=== PATIENT | female | born 1985 | race Hispanic/Latino ===

== ENCOUNTER 2021-09-07 13:01 | Emergency (ER) | payer OTHER, SELFPAY ==
[2021-09-07 13:15] VITALS: BP 154/97; PULSE 88; RESP 18; TEMP 36.9; O2SAT 100
--- NOTE | 2021-09-07 13:52 | WPDEDEXPGENP ---
HPI - General Ped General Chief complaint: Urogenital-Female Stated complaint: blood in urine,painful urination History of Present Illness HPI narrative: Patient is a 35-year-old female who presents to the [facility] via POV accompanied by her spouse for evaluation of urinary problem that began 3 days ago. Additionally, she reports low back pain, dysuria, urinary frequency, urinary urgency, and hematuria. He has not improved symptoms in urinating worsens symptoms. History of UTIs. Today symptoms are similar to previous UTIs. Related Data Allergies Allergy/AdvReac Type Severity Reaction Status Date / Time Penicillins Allergy Unknown Verified 09/07/21 13:21 Pediatric Review of Systems Review of Systems: Denies history of pyelonephritis and renal calculi. Pertinent negatives: fever, chills, sweats, change in appetite, poor p.o. intake, malaise, recent weight loss, myalgias, lymphadenopathy, headache, dizziness, STD exposure, painful intercourse, abdominal pain, constipation, nausea, vomiting, diarrhea, abdominal cramping, urinary incontinence, vaginal bleeding/discharge, penile drainage, shortness of breath, chest pain, and heart palpitations/murmurs. PMFSH Family History Family History Mother Hypertension Patient's mother is in good health Family history of malignant neoplasm of uterus Father Cerebrovascular accident Family history of diabetes mellitus in first degree relative Patient's father is Family history of type 2 diabetes mellitus Social History Social History Smoking status: Never smoker Second hand tobacco smoke exposure: No Alcohol intake: never Comments I have reviewed and agree with the patient's past medical, surgical, social, and family hx as documented by the RN. There is no relevant family history pertinent to the presenting complaint. Pediatric Exam Narrative: Physical exam: GENERAL: Well-appearing, well-nourished, and in no acute distress. HEAD: Normocephalic, atraumatic. NECK: Supple. No lymphadenopathy or nuchal rigidity. CHEST: Lung sounds are clear to auscultation in bilateral lung hernandez. No respiratory distress. HEART: Regular rate and rhythm. No murmur, gallop, or rub heard. ABDOMEN: Soft, non-distended, normal active bowel sounds in all quadrants. Moderate suprapubic tenderness appreciated upon patient. No guarding. No rebound tenderness. No pulsatile or palpable abdominal mass(es). No CVAT : Bladder non-distended, non-tender EXTREMITIES: Normal range of motion. No edema. SKIN: Warm, dry, no rash. No skin color changes. Excellent turgor. NEURO: No focal deficits. Alert and oriented x3. SPECIAL OBSERVATIONS: Smiling. Laughing. No evidence of discomfort. C/O of of proportion to exam. Eating XXX. Running around. Tolerates food/fluids. Course Course Level of Care: Express Care Visit Vital Signs Vital signs: Vital Signs Temperature 98.5 F 09/07/21 13:15 Pulse Rate 88 09/07/21 13:15 Respiratory Rate 18 09/07/21 13:15 Blood Pressure 154/97 H 09/07/21 13:15 Pulse Oximetry 100 09/07/21 13:15 Oxygen Delivery Room Air 09/07/21 13:15 Temperature 98.5 F 09/07/21 13:15 Pulse Rate 88 09/07/21 13:15 Respiratory Rate 18 09/07/21 13:15 Blood Pressure 154/97 H 09/07/21 13:15 Pulse Oximetry 100 09/07/21 13:15 Oxygen Delivery Room Air 09/07/21 13:15 Medical Decision Making Differential Diagnosis Differential Diagnosis: Nephrolithiasis, urinary tract infection, pyelonephritis, frequency of micturition, dysuria Vital Signs Vital Signs: Vital Signs Temperature 98.5 F 09/07/21 13:15 Pulse Rate 88 09/07/21 13:15 Respiratory Rate 18 09/07/21 13:15 Blood Pressure 154/97 H 09/07/21 13:15 Pulse Oximetry 100 09/07/21 13:15 Oxygen Delivery Room Air 09/07/21 13:15 Temperature 98.5 F 0
== END 2021-09-07 14:05 | disposition home or self-care (01) ==
PROVIDERS: Emergency Provider Nurse Practitioner Family
DX: N30.90 Cystitis, unspecified without hematuria (principal)
CPT/HCPCS: 81003; 87077; 87086; 87088; 99203; G0463

== ENCOUNTER 2022-07-14 17:09 | Outpatient (CLI) | payer OTHER, SELFPAY ==
--- NOTE | ~2022-07-14 | CT_ITS ---
EXAMINATION: CT brain wo con DATE: 07/14/2022 17:33 INDICATION: R51.9 - Headache, unspecified . TECHNIQUE: Computed tomography (CT) of the head was performed without intravenous contrast. The mA wa s adjusted according to patient size. Iterative reconstruction technique was employed. The dose-lengt h product was 605.33 mGy-cm. COMPARISON: 08/26/2015. FINDINGS: No acute intracranial hemorrhage or extra-axial fluid collection. No hydrocephalus, mass, or herniation. No acute ischemic infarct. Unremarkable dural venous sinus attenuation. No acute osseous abnormality. The aerated spaces are clear. IMPRESSION: No acute intracranial process. Reviewed, dictated and finalized at location K.
== END 2022-07-14 17:10 | disposition home or self-care (01) ==
PROVIDERS: PCP Family Medicine; Visit Provider Nurse Practitioner
DX: R51.9 Headache, unspecified (principal); R41.3 Other amnesia
CPT/HCPCS: 70450

== ENCOUNTER 2022-07-15 07:35 | Outpatient (CLI) | payer OTHER, SELFPAY ==
[2022-07-15 08:43] LABS: Alanine Aminotransferase 18 U/L (6-35); Albumin Level 4.9 g/dL (3.5-5.1); Alkaline Phosphatase 116 U/L (38-126); Anion Gap 10 mmol/L (8-16); Aspartate Amino Transferase 24 U/L (14-36); Bilirubin,Total 0.5 mg/dL (0.2-1.3); Blood Urea Nitrogen 14 mg/dL (7-17); Calcium 9.1 mg/dL (8.4-10.2); Carbon Dioxide 25 mmol/L (22-30); Chloride 105 mmol/L (98-107); Cholesterol 171 mg/dL (0-200); Estimated Glomerular Filt Rate > 60; Glucose 122 mg/dL (65-110); HDL Direct 39 mg/dL; Potassium 3.5 mmol/L (3.4-5.0); Sodium 140 mmol/L (137-145); Triglycerides 141 mg/dL (<150)
[2022-07-15 08:54] LABS: LDL Cholesterol Direct 110 mg/dL
[2022-07-15 09:01] LABS: Basophils Absolute Auto 0.1 K/mm3 (0.0-0.1); Basophils Percent Auto 0.8 % (0.2-1.2); Eosinophils Absolute Auto 0.3 K/mm3 (0-0.3); Eosinophils Percent Auto 2.8 % (0-4.4); Hematocrit 26.4 % (37.0-47.0); Immature Granulocyte Absolute 0.19 K/mm3 (0.00-0.031); Immature Granulocyte Percent A 1.7 % (0-0.5); Lymphocytes Absolute Auto 4.34 K/mm3 (0.9-3.2); Lymphocytes Percent Auto 38.5 % (18.3-44.2); Mean Corpuscular HGB Conc 25.4 g/dl (32-36); Mean Corpuscular Hemoglobin 16.3 pg (26-34); Mean Corpuscular Volume 64.4 fl (80-100); Mean Platelet Volume 11.1 fl (7.4-10.4); Monocytes Absolute Auto 0.6 K/mm3 (0.1-0.6); Monocytes Percent Auto 5.4 % (2.6-8.5); Neutrophils Absolute Auto 5.7 K/mm3 (1.3-6.7); Neutrophils Percent Auto 50.8 % (45.5-73.1); Nucleated Red Blood Cells Absolute Auto 0.1 K/mm3 (0.0-0.012); Nucleated Red Blood Cells Perc 0.5 % (0.0-0.2); Platelet Count Result 415 k/mm3 (150-375); Red Cell Distribution Width 20.5 % (11.5-14.5); White Blood Count 11.3 K/mm3 (4.5-10.0)
[2022-07-15 09:46] LABS: Hemoglobin 6.7 g/dL (12.0-15.0); Platelet Estimate Increased (Adequate)
[2022-07-15 09:47] LABS: Anisocytosis 2+ (NORMAL); Hypochromasia 2+ (NORMAL)
[2022-07-15 09:48] LABS: Microcytosis 2+ (NORMAL); Schistocytes None Seen (NORMAL)
== END 2022-07-15 07:36 | disposition home or self-care (01) ==
PROVIDERS: PCP Family Medicine; Visit Provider Nurse Practitioner
DX: D64.9 Anemia, unspecified (principal); Z76.89 Persons encountering health services in other specified circumstances
CPT/HCPCS: 36415; 80053; 80061; 84443; 85025

== ENCOUNTER 2022-07-15 13:05 | Emergency (ER) | payer OTHER, SELFPAY ==
[2022-07-15] VITALS (17 sets, daily range): BP systolic 149–191; BP diastolic 93–120; PULSE 80–110; RESP 12–21; TEMP 36.7–36.8; O2SAT 97–100
[2022-07-15 13:53] LABS: Basophils Absolute Auto 0.1 K/mm3 (0.0-0.1); Basophils Percent Auto 0.8 % (0.2-1.2); Eosinophils Absolute Auto 0.2 K/mm3 (0-0.3); Eosinophils Percent Auto 1.7 % (0-4.4); Hematocrit 26.5 % (37.0-47.0); Immature Granulocyte Absolute 0.21 K/mm3 (0.00-0.031); Immature Granulocyte Percent A 1.8 % (0-0.5); Lymphocytes Absolute Auto 3.93 K/mm3 (0.9-3.2); Lymphocytes Percent Auto 33.8 % (18.3-44.2); Mean Corpuscular Hemoglobin 16.6 pg (26-34); Mean Corpuscular Volume 63.9 fl (80-100); Mean Platelet Volume 10.5 fl (7.4-10.4); Monocytes Absolute Auto 0.6 K/mm3 (0.1-0.6); Monocytes Percent Auto 5.2 % (2.6-8.5); Neutrophils Absolute Auto 6.6 K/mm3 (1.3-6.7); Neutrophils Percent Auto 56.7 % (45.5-73.1); Nucleated Red Blood Cells Absolute Auto 0.1 K/mm3 (0.0-0.012); Nucleated Red Blood Cells Perc 0.4 % (0.0-0.2); Platelet Count Result 429 k/mm3 (150-375); Red Blood Count 4.15 M/mm3 (4.2-5.4); Red Cell Distribution Width 20.3 % (11.5-14.5); White Blood Count 11.6 K/mm3 (4.5-10.0)
[2022-07-15 13:55] LABS: Hemoglobin 6.9 g/dL (12.0-15.0)
[2022-07-15 14:03] LABS: Anion Gap 11 mmol/L (8-16); Blood Urea Nitrogen 12 mg/dL (7-17); Calcium 9.1 mg/dL (8.4-10.2); Carbon Dioxide 25 mmol/L (22-30); Chloride 103 mmol/L (98-107); Estimated CRCL calculation 114 ml/min; Estimated Glomerular Filt Rate > 60; Glucose 108 mg/dL (65-110); Potassium 3.9 mmol/L (3.4-5.0); Sodium 139 mmol/L (137-145)
--- NOTE | 2022-07-15 14:16 | ED.RECABL ---
HPI - Recheck/Abnormal Lab/Rx General Chief Complaint: Recheck/Abnormal Lab/Rx Stated Complaint: abnormal labs Time Seen by Provider: 07/15/22 13:14 History of Present Illness HPI narrative: Patient with history of anemia requiring blood transfusions in the past presents here with shortness of breath, generalized weakness, found to be anemic and sent here for blood transfusion. She does state that she has very heavy periods, has seen a doctor for this in the past. Related Data Home Medications Medication Instructions Recorded Confirmed esomeprazole magnesium 20 mg 20 mg PO DAILY 07/14/22 07/14/22 capsule,delayed release (Nexium 24HR) Allergies Allergy/AdvReac Type Severity Reaction Status Date / Time Penicillins Allergy Unknown Verified 07/15/22 13:11 Review of Systems Review of Systems: CONST: Tired HEENT: No sore throat C/V: No chest pain RESP: Some shortness of breath GI: No abdominal pain : No dysuria. M/S: No joint pain. SKIN: No rash. 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 EYES: EOMI, conjunctiva normal ENT: Hearing grossly intact LUNGS: Nonlabored breathing. HEART: [Regular rate and rhythm] ABD: [Soft], [nontender to palpation] EXT: Normal range of motion SKIN: [No rashes or lesions.] NEURO: [Alert and oriented x 3. No gross focal sensory or strength deficits.] PSYCH: Normal affect Course Vital Signs Vital signs: Vital Signs Temperature 98.0 F 07/15/22 13:07 Pulse Rate 109 H 07/15/22 13:07 Respiratory Rate 16 07/15/22 13:07 Blood Pressure 191/109 H 07/15/22 13:07 Pulse Oximetry 100 07/15/22 13:07 Oxygen Delivery Room Air 07/15/22 13:07 Temperature 98.3 F 07/15/22 16:24 Pulse Rate 87 07/15/22 17:00 Respiratory Rate 14 07/15/22 17:00 Blood Pressure 149/97 H 07/15/22 16:31 Pulse Oximetry 99 07/15/22 17:00 Oxygen Delivery Room Air 07/15/22 13:07 MDM - Recheck/Abnormal Lab/Rx MDM Narrative Medical decision making narrative: 36-year-old female sent here by PCP for blood transfusion, vitals initially tachycardic, she does appear quite tired and pale, with soft nontender abdomen, normal neurologic exam. She is transfused a unit here, she already has close follow-up with her doctor who has set her up for appointments outpatient for neurology for headaches, hematology for her blood, ENGINEERING DOCUMENTATION SPECIALIST for her for heavy periods which we suspect is likely causing her symptoms. She declined any further medications for me at this time. Return precautions provided and stable for discharge at this time Lab Data 07/15/22 13:44 07/15/22 13:44 Labs: Lab Results 07/15/22 07/15/22 Range/Units 13:44 13:46 WBC 11.6 H (4.5-10.0) K/mm3 RBC 4.15 L (4.2-5.4) M/mm3 Hgb 6.9 L* (12.0-15.0) g/dL Hct 26.5 L (37.0-47.0) % MCV 63.9 L (80-100) fl MCH 16.6 L (26-34) pg MCHC 26.0 L (32-36)
[2022-07-15 14:30] LABS: Schistocytes None Seen (NORMAL)
[2022-07-15 14:35] LABS: Eosinophils Absolute Manual 0.34 K/mm3 (0.02-0.5); Eosinophils Percent Manual 3 % (0-4); Lymphocytes Absolute Manual 4.06 K/mm3 (1.1-4.5); Monocytes Absolute Manual 0.11 K/mm3 (0.1-0.90); Monocytes Percent Manual 1 % (3-9); Neutrophils Percent Manual 61 % (46-73); Total Cells Counted 100
[2022-07-15 14:36] LABS: Hypochromasia 1+ (NORMAL); Platelet Estimate Adequate (Adequate)
[2022-07-15 14:37] LABS: Anisocytosis 3+ (NORMAL)
[2022-07-15] MEDS: TUBING, BLOOD PLUM PUMP TUBING 1 EACH XX (15:12)
[2022-07-15] MEDS: SODIUM CHLORIDE 0.9% IV 250 ML 30 ML IV CONT (15:12)
--- NOTE | 2022-07-27 06:39 | PC.NURSE ---
LATE ENTRY This note is being entered to document information to the patient's record. The following information was omitted on [07/15/22], by [Tila Garcia RN].Normal saline stopped @ 1449 on 07/15/22
--- NOTE | 2022-08-07 07:26 | PC.NURSE ---
LATE ENTRY This note is being entered to document information to the patient's record. The following information was omitted on [07/15/22], by [HANNAH Adorno]. Fluids were infused on 07/15/22.
== END 2022-07-15 17:33 | disposition home or self-care (01) ==
PROVIDERS: Emergency Provider Emergency Medicine; PCP Family Medicine
DX: D64.9 Anemia, unspecified (principal)
CPT/HCPCS: 36415; 36430; 80048; 80053; 80061; 84443; 85025; 86850; 86900; 86901; 86920; 96360; 99285; J7050; P9016

== ENCOUNTER 2022-08-28 12:04 | Outpatient (CLI) | payer OTHER, SELFPAY ==
[2022-08-28 12:24] LABS: Basophils Absolute Auto 0.1 K/mm3 (0.0-0.1); Basophils Percent Auto 0.7 % (0.2-1.2); Eosinophils Absolute Auto 0.3 K/mm3 (0-0.3); Eosinophils Percent Auto 2.8 % (0-4.4); Hematocrit 28.5 % (37.0-47.0); Immature Granulocyte Absolute 0.06 K/mm3 (0.00-0.031); Immature Granulocyte Percent A 0.7 % (0-0.5); Lymphocytes Absolute Auto 3.57 K/mm3 (0.9-3.2); Lymphocytes Percent Auto 38.7 % (18.3-44.2); Mean Corpuscular HGB Conc 28.1 g/dl (32-36); Mean Corpuscular Hemoglobin 19.7 pg (26-34); Mean Platelet Volume 10.3 fl (7.4-10.4); Monocytes Absolute Auto 0.5 K/mm3 (0.1-0.6); Monocytes Percent Auto 5.9 % (2.6-8.5); Neutrophils Absolute Auto 4.7 K/mm3 (1.3-6.7); Neutrophils Percent Auto 51.2 % (45.5-73.1); Platelet Count Result 404 k/mm3 (150-375); Red Blood Count 4.07 M/mm3 (4.2-5.4); Red Cell Distribution Width 22.3 % (11.5-14.5); White Blood Count 9.2 K/mm3 (4.5-10.0)
[2022-08-28 12:31] LABS: Platelet Estimate Increased (Adequate); Schistocytes None Seen (NORMAL)
[2022-08-28 12:32] LABS: Anisocytosis 1+ (NORMAL); Hypochromasia 2+ (NORMAL)
[2022-08-28 14:20] LABS: Iron 32 ug/dL (37-170)
[2022-08-28 14:22] LABS: Alanine Aminotransferase 18 U/L (6-35); Albumin Level 4.7 g/dL (3.5-5.1); Alkaline Phosphatase 94 U/L (38-126); Anion Gap 9 mmol/L (8-16); Aspartate Amino Transferase 23 U/L (14-36); Bilirubin,Total 0.4 mg/dL (0.2-1.3); Blood Urea Nitrogen 13 mg/dL (7-17); Calcium 8.6 mg/dL (8.4-10.2); Carbon Dioxide 26 mmol/L (22-30); Chloride 106 mmol/L (98-107); Estimated Glomerular Filt Rate > 60; Glucose 102 mg/dL (65-110); Lactate Dehydrogenase 154 U/L (120-246); Sodium 141 mmol/L (137-145)
[2022-08-28 14:32] LABS: Percent Iron Saturation 7 % (20-50)
[2022-08-28 14:55] LABS: Ferritin 3.45 ng/mL (6.24-137)
[2022-08-28 15:27] LABS: Folic Acid 8.6 ng/mL (2.76->20)
== END 2022-08-28 12:05 | disposition home or self-care (01) ==
PROVIDERS: PCP Family Medicine; Visit Provider Internal Medicine Hematology & Oncology
DX: D64.9 Anemia, unspecified (principal)
CPT/HCPCS: 36415; 80053; 82607; 82728; 82746; 83540; 83550; 83615; 85025

== ENCOUNTER 2023-06-25 19:34 | Emergency (ER) | payer OTHER, SELFPAY ==
[2023-06-25] VITALS (7 sets, daily range): BP systolic 154–187; BP diastolic 93–100; PULSE 84–121; RESP 12–16; TEMP 36.2–36.6; O2SAT 100
--- NOTE | ~2023-06-25 | XR_ITS ---
XR chest 1V portable DATE: 06/25/2023 20:22 INDICATION: Syncope TECHNIQUE: Portable upright AP chest on June 25, 2023 at 2018 hours COMPARISON: None available from the archive at this time FINDINGS: Normal heart size. No hilar or mediastinal enlargement is evident. No pulmonary infiltrate or consolidation, pleural effusion or pulmonary vascular congestion or pneumo thorax is detected. IMPRESSION: No active cardiopulmonary disease Reviewed, dictated and finalized at location A.
--- NOTE | 2023-06-25 19:39 | ECG_ITS ---
SEE SCANNED COPY FOR CONFIRMED REPORT MTDD
[2023-06-25 19:55] LABS: Basophils Absolute Auto 0.1 K/mm3 (0.0-0.1); Basophils Percent Auto 0.7 % (0.2-1.2); Eosinophils Absolute Auto 0.2 K/mm3 (0-0.3); Eosinophils Percent Auto 1.3 % (0-4.4); Hematocrit 26.3 % (37.0-47.0); Immature Granulocyte Percent A 0.8 % (0-0.5); Lymphocytes Absolute Auto 3.88 K/mm3 (0.9-3.2); Lymphocytes Percent Auto 31.7 % (18.3-44.2); Mean Corpuscular HGB Conc 25.9 g/dl (32-36); Mean Corpuscular Hemoglobin 16.8 pg (26-34); Mean Corpuscular Volume 64.9 fl (80-100); Mean Platelet Volume 9.1 fl (7.4-10.4); Monocytes Absolute Auto 0.5 K/mm3 (0.1-0.6); Monocytes Percent Auto 4.2 % (2.6-8.5); Neutrophils Absolute Auto 7.5 K/mm3 (1.3-6.7); Neutrophils Percent Auto 61.3 % (45.5-73.1); Nucleated Red Blood Cells Perc 0.2 % (0.0-0.2); Platelet Count Result 556 k/mm3 (150-375); Red Blood Count 4.05 M/mm3 (4.2-5.4); White Blood Count 12.3 K/mm3 (4.5-10.0)
[2023-06-25 20:05] LABS: Alanine Aminotransferase 12 U/L (6-35); Albumin Level 5.1 g/dL (3.5-5.1); Alkaline Phosphatase 94 U/L (38-126); Anion Gap 10 mmol/L (4-12); Aspartate Amino Transferase 29 U/L (14-36); Bilirubin,Total 0.7 mg/dL (0.2-1.3); Blood Urea Nitrogen 11 mg/dL (7-17); Calcium 9.5 mg/dL (8.4-10.2); Carbon Dioxide 22 mmol/L (22-30); Chloride 106 mmol/L (98-107); Estimated Glomerular Filt Rate > 60; Glucose 111 mg/dL (65-110); Potassium 3.9 mmol/L (3.4-5.0); Sodium 138 mmol/L (137-145)
[2023-06-25 20:26] LABS: Hemoglobin 6.8 g/dL (12.0-15.0)
[2023-06-25 20:28] LABS: Platelet Estimate Increased (Adequate)
[2023-06-25 20:29] LABS: Anisocytosis 2+; Hypochromasia 1+; Schistocytes None Seen; Stomatocytes 1+
[2023-06-25] MEDS: SODIUM CHLORIDE 0.9% IV 1,000 ML 999 ML IV CONT (20:37)
[2023-06-25] MEDS: ACETAMINOPHEN 500 MG TABLET 1000 MG PO (20:38)
--- NOTE | 2023-06-25 20:55 | ED.GENADULT ---
HPI - General Adult General Chief complaint: Syncope Stated complaint: syncope Time Seen by Provider: 06/25/23 19:48 History of Present Illness HPI narrative: [employer] service used for all communication. 37-year-old female with history of deficiency anemia presenting for syncope 4 days ago. patient has not been feeling well for last week. She has been feeling dizzy when she stands dyspnea exertion. Patient has a well documented history of iron deficiency anemia. She was seen a restaurant area manager stopped following up because she thought the iron transfusions made her feel bad. Patient denies chest pain difficulty breathing. Related Data Home Medications Medication Instructions Recorded Confirmed esomeprazole magnesium 20 mg 20 mg PO DAILY 07/14/22 12/14/22 capsule,delayed release (Nexium 24HR) cetirizine 10 mg tablet (Zyrtec) 10 mg PO DAILY 12/14/22 12/14/22 Allergies Allergy/AdvReac Type Severity Reaction Status Date / Time iron [From Venofer] Allergy Severe Dizziness Verified 06/25/23 19:40 Penicillins Allergy Unknown Verified 12/14/22 15:10 [facility] Family History Family History Mother Hypertension Patient's mother is in good health Family history of malignant neoplasm of uterus Father Cerebrovascular accident Family history of diabetes mellitus in first degree relative Patient's father is Family history of type 2 diabetes mellitus Social History Social History Smoking status: Never smoker Second hand tobacco smoke exposure: No Alcohol intake: never Substance use: never Substance use type: does not use Living arrangements: with family Occupation/Education: occupation Additional occupation/education comments: Homemaker Gender identity (if verbalized by the patient): Female Agree to blood products: Yes Exam Narrative: APPEARANCE: No apparent distress. Head: atraumatic. EYES: EOMI, NOSE: Atraumatic NECK: Trachea midline RESPIRATORY: No increased rate of breathing CTAB CARDIOVASCULAR: tachycardic no peripheral edema ABDOMINAL: Non-distended soft nontender MUSCULOSKELETAl: No obvious deformities NEURO: Alert. Cranial nerves 2-12 grossly intact. Sensation light touch, motor function cerebellar function intact for 4 extremities. Gait exam was normal. SKIN:: Warm, dry. Normal color PSYCHIATRIC: Normal affect Course Vital Signs Vital signs: Vital Signs Temperature 97.2 F L 06/25/23 19:35 Pulse Rate 121 H 06/25/23 19:35 Respiratory Rate 16 06/25/23 19:35 Blood Pressure 187/99 H 06/25/23 19:35 Pulse Oximetry 100 06/25/23 19:35 Oxygen Delivery Room Air 06/25/23 19:35 Temperature 97.1 F L 06/25/23 23:30 Pulse Rate 86 06/25/23 23:30 Respiratory Rate 15 06/25/23 23:30 Blood Pressure 156/94 H 06/25/23 23:30 Pulse Oximetry 100 06/25/23 23:30 Oxygen Delivery Room Air 06/25/23 19:35 Medical Decision Making MDM Narrative Medical decision making narrative: -Course: 37-year-old female with history of iron-deficiency anemia presenting symptomatic anemia. patient transfused 2 units PRBCs with improvement in vital signs and symptoms. Patient discharged and instructed follow-up with restaurant area manager. -DDX includes but is not limited to: symptomatic anemia, dehydration, viral illness -Co-morbidities complicating care: iron deficiency anemia, noncompliance with iron supplementation -Social determinants of health: applier, lives with her -Independent interpretation of studies: hemoglobin 6.8 MCV 64.9 Metabolic panel wnl. ekg reviewed. chest x-ray unremarkable -Interventions: 1 L normal saline, 2 units packed red blood cells -Shared decision making / Disposition: discharge Vital Signs Vital Signs: Vital Signs Temperature 97.2 F L 06/25/23 19:35 Pulse Rate 121 H 06/25/23 19:35 Respiratory Ra
[2023-06-25 20:56] LABS: Influenza A QL RT-PCR Negative (Negative); Influenza B QL RT-PCR Negative (Negative); RSV RNA, RT-PCR Negative (Negative); SARS-CoV-2 RNA PCR Negative (Negative)
[2023-06-25] MEDS: SODIUM CHLORIDE 0.9% IV 250 ML 30 ML IV CONT (22:12)
[2023-06-25] MEDS: TUBING, BLOOD SET 1 EACH XX ×2 (22:18→23:18)
[2023-06-25] MEDS: SODIUM CHLORIDE 0.9% IV 250 ML 500 ML (23:18)
[2023-06-26 00:27] VITALS: BP 158/100; PULSE 76; RESP 15; TEMP 36.3; O2SAT 100
== END 2023-06-26 00:28 | disposition home or self-care (01) ==
PROVIDERS: Emergency Provider Emergency Medicine; PCP Family Medicine
DX: D64.9 Anemia, unspecified (principal); Z20.822 Contact with and (suspected) exposure to COVID-19
CPT/HCPCS: 36415; 36430; 71045; 80053; 85025; 86850; 86900; 86901; 86923; 87637; 93005; 96360; 96361; 99285; A9270; J7030; J7050; P9016

== ENCOUNTER 2024-11-15 14:14 | Outpatient (CLI) | payer OTHER, SELFPAY ==
--- OUTSIDE RECORDS SUMMARY | 2024-10-31 10:40 | XMS_ITS ---
Author Organization [facility] Address [address] [place] [address] Care Team Providers Care Pharmacy Account Director Name Role Phone Lew Hoang Primary Care Provider Christopher Donald [phone] REASON FOR VISIT Labs-fasting Social History Sex Assigned At : Social History Observation Description Sex Assigned At Female Encounters Encounter Location Date Provider Diagnosis [address] [address] 10/31/2024 Christopher Donald Plan Of Treatment No Information Progress Notes * Mami RILEYDOB: [birth year] (39 yo F)Acc No.[id number]:10/31/2024 UNLOCKED PROGRESS NOTE Patient: Mami ARCINIEGA Provider: Pearl Donald :1985 A ge:39 Y S ex:Female Date:10/31/2024 Address:[address] [place], [place] [id number] Pcp:Lew Hoang Subjective: * Chief Complaints: * 1 . Labs-fasting. * Medical History: Objective: * Vitals: Assessment: Plan: * Treatment: * * Electronic signature of Savanna Donald , [id number] on 11/15/2024 at 03:48 PM CDT Sign off status: Pending * Provider: Pearl Donald Date: 10/31/2024 Generated for Lian green/Song/eTransmitting on: 0 11/15/2024 03:48 PM CDT
[2024-11-15 14:40] LABS: Hematocrit 31.5 % (37.0-47.0); Hemoglobin 8.5 g/dL (12.0-15.0); Immature Granulocyte Percent A 0.8 % (0-0.5); Lymphocytes Absolute Auto 3.47 K/mm3 (0.9-3.2); Mean Corpuscular HGB Conc 27.0 g/dl (32-36); Mean Corpuscular Hemoglobin 18.4 pg (26-34); Mean Corpuscular Volume 68.0 fl (80-100); Nucleated Red Blood Cells Absolute Auto 0.000 K/mm3 (0.0-0.012); Nucleated Red Blood Cells Perc 0.0 % (0.0-0.2); Platelet Count Result 402 k/mm3 (150-375); Red Blood Count 4.63 M/mm3 (4.2-5.4); White Blood Count 9.8 K/mm3 (4.5-10.0)
[2024-11-15 15:34] LABS: HIV 1/2 Ab P24 Ag Result Negative (Negative)
--- OUTSIDE RECORDS SUMMARY | 2024-11-15 15:48 | XMS_ITS | Clinical Summary ---
Author Organization [facility] Address [address] [place] [address] Care Team Providers Care Health Sciences Program Coordinator Name Role Phone Laurent Joya MD Primary Care Provider [phone] Allergies No known active allergies Medications lisinopriL (PRINIVIL) 10 mg tablet Take 10 mg by mouth daily. Active cetirizine (ZyrTEC) 10 mg tablet Take by mouth daily. Active esomeprazole (NexIUM) 20 mg Capsule, Delayed Release(E.C.) Take 20 mg by mouth daily before breakfast. Active Active Problems No known active problems Family History Relation Name Status Comments Brother 1 Alive Brother 2 Alive Brother 3 Alive Brother 4 Alive Brother 5 Alive Daughter Alive Father Mother Alive Sister 1 Alive Sister 2 Sister 3 Alive Sister 4 Alive Sister 5 Alive Sister 6 Alive Sister 7 Alive Son 1 Alive Son 2 Alive Son 3 Alive Social History Tobacco Use Types Packs/Day Years Used Date Smoking Tobacco: Never Smokeless Tobacco: Never Alcohol Use Standard Drinks/Week Comments Yes 0 (1 standard drink = 0.6 oz pur e alcohol) occasional Comments Unknown Sex and Gender Information Value Date Recorded Sex Assigned at Not on file Legal Sex Female 2:21 PM CDT Gender Identity Not on file Sexual Orientation Not on file Last Filed Vital Signs Vital Sign Reading Time Taken Comments Blood Pressure 177/88 08/19/2022 10:48 AM CDT Pulse 92 08/19/2022 10:47 AM CDT Temperature 36.9 C (98.4 F) 08/19/2022 10:47 AM CDT Respiratory Rate - - Oxygen Saturation 100% 08/19/2022 10:47 AM CDT Inhaled Oxygen Concentration - - Weight 55.8 kg (123 lb) 08/19/2022 10:47 AM CDT Height - - Body Mass Index - - Plan of Treatment Health Maintenance Due Date Last Done Comments DTAP/TDAP/TD VACCINES (1 - Tdap) 2005 HEPATITIS B VACCINES (1 of 3 - 19+ 3-dose series) 09/13 HPV/Cotest (21-29) 10/10/2007 HPV VACCINES (1 - 3-dose SCDM series) 2013 CERVICAL CANCER SCREENING 2016 HPV/Cotest (30-65) 2016 PAP SMEAR 2016 INFLUENZA VACCINE (#1) 2024 Insurance MEDICAID Care Teams Health Sciences Program Coordinator Relationship Specialty Start Date End Date Laurent Joya MD PCP - General Family Practice 08/19/22
--- OUTSIDE RECORDS SUMMARY | 2024-11-15 15:48 | XMS_ITS | Patient Health Record ---
Author Organization [facility] Address [address] [place] [address] Care Team Providers Care Radiation Protection Engineer Name Role Phone Lew Hoang Primary Care Provider Christopher Donald Unavailable [phone] Lew Read Unavailable [phone] Allergies Allergen (clinical drug ingredient) Drug/Non Drug Allergy documented on EMR Reaction Allergy Type Onset Date Status iron sucrose Venofer anaphylaxis Drug Allergy Ac tive Reason For Referral Reason Chronic anemia, hx o f iron and blood infusions, prefers NOT at [place] due to past issue. Diagnosis 1 Chronic anemia (D64. 9) Referral Organization [facility] Referring Provider First Name Lew Referring Provider Last Name Viktor [facility] Provider [facility] Hemat[facility] Referred Provider Specialty Hematology General Notes Will need athletic equipment manager for services. First language is Castilian [place]ian. Records/recent lab results are pending from previous providers ([facility] Hematology; Dr. Joya in [place]).Erma RN, Stephanie N 01/19/2024 09:44:26 AM >referral faxed with note from visit. Will resend with lab results if provided from previous providers when records are received.Erma RN, Stephanie N 01/19/2024 02:08:46 PM >referral was successfully faxed. A letter has been mailed with referral details (Citizen Of [place] and [place]). See letter logs.Erma RN, Stephanie N 01/21/2024 11:36:22 AM >[facility] labs received and attached. Will refax referral.Erma RN, Stephanie N 01/21/2024 11:37:33 AM > Refaxed to [phone] and to their support team at [phone]. Clinical Notes [address] Joseph Hurtado, Hematology, [address] [place] [address])[place] [address], , Referral Priority Routine Reason Increasingly painful menses, hx of ovarian cysts. Diagnosis 1 Menses painful (N94. 6) Diagnosis 2 Hx of ovarian cyst ( Z87.42) Referral Organization [facility] Referring Provider First Name Lew Referring Provider Last Name Viktor Referring Provider [facility] duy Referred Provider [facility] Gynecology Referred Provider Specialty Personnel Security Specialist General Notes HANNAH Ritchie Stephanie N 01/19/2024 09:50:08 AM >referral faxed. Confirmation pending.Erma RN, Stephanie N 01/19/2024 02:09:27 PM >referral was successfully faxed. A letter has been mailed with referral details (Citizen Of [place] and [place]). See letter logs. Clinical Notes [facility] Gynecology, , [address] [place] [address], , [address], [address] , [place] [address], , Referral Priority Routine Reason NEEDS IRON INFUSIONS , PREFERS DR. ROBLERO AT [facility] BUT WILL GO [facility] IF HE DOES NOT TAKE HER INSURANCE Diagnosis 1 Iron deficiency anem ia (D50.9) Referral Organization [facility] Referring Provider First Name Christopher Referring Provider Last Name Shabana Referring Provider [facility] Referred Provider Specialty Hematology General Notes Alison Hall RN 02:48:43 PM >verified taking clients insurance Clinical Notes Dr Roblero, [address] [place] [address], phone [phone], fax [phone] Referral Priority Routine Medications Medication SIG (Take, Route, Frequency, Duration) Notes Start Date End Date Status amLODIPine Besylate 5 MG TAKE 1 TABLET B Y MOUTH DAILY; Duration: 90 days Active LORazepam 0.5 MG 1 tablet Orally Once a day; Duration: 7 days As needed 1 hour prior to procedures 10/31/2024 Active Social History Sex Assigned At : Social History Observation Description Sex Assigned At Female Problems Problem Type SNOMED Code ICD Code Onset Dates Problem Status W/U Status Risk Notes Problem Iron deficiency anemia (32610352) Iron deficiency anemia (D50.9) Active confirmed Problem Overweight (978808342) Over weight (E66.3) Active confirmed Problem Overweight (967724993) Overweight (BMI 25.0-29.9) (E66.3) Active confirmed Problem Essential hypertension (30499598) Hypertension, unspecified type (I10) Active confirmed Problem Chronic anemia (576088243) Chronic anemia (D64.9) Active confirmed Problem Dysmenorrhea (433601454) Menses painful (N94.6) Active confirmed Vital Signs Heart Rate 90 /min 10/31/2024 Respiratory Rate 16 /min 10/31/2024 Blood pressure diastolic 68 mm Hg 10/31/2024 Oximetry 100 % 10/31/2024 Height 57 in 10/31/2024 Blood pressure systolic 110 mm Hg 10/31/2024 Weight 131 lbs lbs 10/31/2024 BMI 28.35 kg/m2 10/31/2024 Encounters Encounter Location Date Provider Diagnosis [address] [address] 10/31/2024 Christopher Donald [address] [address] 11/15/2024 Lew Read Exposure to potential infection Z20.9 ; Iron deficiency anemia D50.9 ; Screening for diabetes mellitus Z13.1 ; Lipid screening Z13.220 and Fatigue R53.[address] [address] 01/18/2024 Lew Hoang Chronic anemia D64.9 ; Encounter to establish care Z76.89 ; Hypertension, unspecified type I10 ; Hx of ovarian cyst Z87.42 ; Menses painful N94.6 ; Overweight (BMI 25.0-29.9) E66.3 and Nutritional counseling Z71.[address] [address] 10/31/2024 Christopher Donald Iron deficiency anemia D50.9 ; Hypertension, unspecified type I10 ; Fatigue R53.83 ; Exposure to potential infection Z20.9 ; Lipid screening Z13.220 ; Over weight E66.3 ; Screening for diabetes mellitus Z13.1 and Anxiety about health R45.89 [facility] [address] [address] 02/09/2024 Lew Hoang [facility] [address] [place] [address] 11/09/2024 Christopher Donald Assessments Encounter Date Diagnosis (ICD Code) Assessment Notes Treatment Notes Treatment Clinical Notes Section Notes 01/18/2024 Chronic anemia (ICD-10 - D64.9) Very mild symptoms at this time. Will refer to new hematology, records requested from past providers. 01/18/2024 Encounter to establish care (ICD-10 - Z76.89) 10/31/2024 Iron deficiency anemia (ICD-10 - D50.9) 10/31/2024 Hypertension, unspecified type (ICD-10 - I10) 11/15/2024 Exposure to potential infection (ICD-10 - Z20.9) 11/15/2024 Iron deficiency anemia (ICD-10 - D50.9) 01/18/2024 Hypertension, unspecified type (ICD-10 - I10) Not well controlled on past lisinopril, will try amlodipine, monitor readings at home, f/u in 1 month. 10/31/2024 Fatigue (ICD-10 - R53.83) 01/18/2024 Hx of ovarian cyst (ICD-10 - Z87.42) 11/15/2024 Screening for diabetes mellitus (ICD-10 - Z13.1) 10/31/2024 Exposure to potential infection (ICD-10 - Z20.9) 11/15/2024 Lipid screening (ICD-10 - Z13.220) 01/18/2024 Menses painful (ICD-10 - N94.6) 10/31/2024 Lipid screening (ICD-10 - Z13.220) 01/18/2024 Overweight (BMI 25.0-29.9) (ICD-10 - E66.3) 11/15/2024 Fatigue (ICD-10 - R53.83) 10/31/2024 Over weight (ICD-10 - E66.3) 10/31/2024 Screening for diabetes mellitus (ICD-10 - Z13.1) 01/18/2024 Nutritional counseling (ICD-10 - Z71.3) 10/31/2024 Anxiety about health (ICD-10 - R45.89) needle stick anxiety Plan Of Treatment Pending Test Test Name Order Date HIV Screen *HIV 1, 2 Ab, p24 Ag ([id number]) 11/15/2024 Vitamin B12 and Folate 11/15/2024 Iron and TIBC* 11/15/2024 Hemoglobin A1c* 11/15/2024 CBC With Differential/Platelet* 11/16/19 25 Hepatitis B Surface Antigen (HBsAg Scree n) 11/15/2024 Hepatitis C Virus Antibody w/Rflx to Andreas ntitative Real-time PCR ([id number]) 11/15/2024 Lipid Panel* 11/15/2024 CMP 14 Comprehensive Metabolic Panel* TSH Rfx on Abnormal to Free T4 5 Future Test Test Name Order Date Celiac Antibodies tTG IgA, JESS IgA, Tota l IgA w/reflex to tTG IgG 10/31/2024 Insurance Providers Payer Name Payer Address Payer Phone Subscriber Number Group Number Insured Name Patient Relationship to Insured Coverage Start Date Coverage End Date [facility] Attn Claims Department [address] [place] [address] [id number] Mami Arenas Self - patient is the insured 4 Medical (General) History Surgical History Surgery Date(Month/Year) c section 2009 ovarian cyst removal
--- OUTSIDE RECORDS SUMMARY | 2024-11-15 15:48 | XMS_ITS | Clinical Summary ---
Author Organization [facility] Address [address] [place] [address] Care Team Providers Care Predatory Hunter Name Role Phone Magnolia Colón MD Primary Care Provider Source Comments [facility],non-owned Affiliates and Associated Physician Practices is amultiple site organization consisting of ambulatory clinics and hospital sitesin [place], [place], [place] and [place]. This disclosure is being madepursuant to the Care Everywhere program and may not contain all information available regarding this patient. Last updated 17.[facility] [employer] Allergies Active Allergy Reactions Criticality Noted Date Comments Penicillins Itching Medium 10/12/2017 Medications * Be aware that medications may not be up to date on this document. Alwaysverify current medications with the patient. lisinopril (PRINIVIL; ZESTRIL) 20 MG tabletIndication s:Iron deficiency anemia, unspecified iron deficiency anemia type Take 20 mg by mouth once daily Active B Complex Vitamins (B COMPLEX PO)Indications:I bakari deficiency anemia, unspecified iron deficiency anemia type Take 1 tablet by mouth once daily Active famotidine (PEPCID) 10 MG tabletIndication s:Iron deficiency anemia, unspecified iron deficiency anemia type Take 10 mg by mouth as needed for Heartburn Active ibuprofen (MOTRIN) 600 MG tablet Take 1 tablet by mouth every 6 hours as needed for Pain 90 tablet 1 8 Active Active Problems Problem Noted Date Diagnosed Date Iron deficiency anemia 11/08/2017 Social History Tobacco Use Types Packs/Day Years Used Date Smoking Tobacco: Never Smokeless Tobacco: Never Tobacco Cessation:Counseling Given: No Alcohol Use Standard Drinks/Week Comments Yes 1 (1 standard drink = 0.6 oz pur e alcohol) occ Comments No Sex and Gender Information Value Date Recorded Sex Assigned at Not on file Legal Sex Female 4:33 PM ANALYSIS INTERN Gender Identity Not on file Sexual Orientation Not on file Last Filed Vital Signs Vital Sign Reading Time Taken Comments Blood Pressure 128/79 01/18/2018 1:01 PM ANALYSIS INTERN Pulse 72 01/18/2018 1:01 PM ANALYSIS INTERN Temperature 36.7 C (98.1 F) 01/18/2018 12:19 PM ANALYSIS INTERN Respiratory Rate 16 01/18/2018 1:01 PM ANALYSIS INTERN Oxygen Saturation 100% 01/18/2018 1:01 PM ANALYSIS INTERN Inhaled Oxygen Concentration - - Weight 53.5 kg (118 lb) 01/18/2018 8:58 AM ANALYSIS INTERN Height 152.4 cm (5') 01/18/2018 8:58 AM ANALYSIS INTERN Body Mass Index 23.05 01/18/2018 8:58 AM ANALYSIS INTERN Plan of Treatment Health Maintenance Due Date Last Done Comments HIV SCREENING 2001 HEPATITIS C SCREENING 10/04/2004 DTAP/TDAP/TD VACCINES (1 - Tdap) 2005 HEPATITIS B VACCINE (1 of 3 - 19+ 3-dose series) 2005 HPV VACCINE (1 - 3-dose SCDM series) 2013 PAP with HPV 12/13/2022 12/13/2017 COVID-19 VACCINE (1 - 2023-2 5 season) 2023 DEPRESSION SCREENING 03/15/2024 INFLUENZA VACCINE (#1) 2024 ZOSTER VACCINE (1 of 2) 2036 HIB VACCINE Aged Out No longer eligi ble based on patient's age to complete this topic MENINGOCOCCAL (Group B) VACC INE SHARED DECISION-MAKING Aged Out No longer eligibl e based on patient's age to complete this topic MENINGOCOCCAL GROUPS A/C/Y/W VACCINE Aged Out No longer eligible b ased on patient's age to complete this topic PNEUMOCOCCAL VACCINE Aged Out No long er eligible based on patient's age to complete this topic Procedures Procedure Name Priority Date/Time Associated Diagnosis Comments HPV DETECTION HIGH RISK GILDARDO Routine 12/13/2017 10:56 AM CDT Encounter for routine gynecological examination with Papanicolaou smear of cervix from Last 3 Months or Most Recently Relevant to Health Maintenance Results * HPV DETECTION HIGH RISK GILDARDO (12/13/2017 10:56 AM CDT) High Risk Human Papilloma Result Not Detected Not Detected 12/16/2017 4:58 PM CDT [facility] High Risk Human Papilloma Interp 12/16/2017 4:58 PM CDT [facility] Comment:High Risk Human Miguel Angel lloma Virus was Not Detected. Pathology/Cytolo gy MISCELLANEOUS SAMPLES / Unknown 12/13/2017 10:56 AM CDT 12/14/2017 10:56 AM CDT Narrative [facility] - 12/16/2017 4:58 PM CDT Nucleic acid isolated from the specimen was analyzed with a nucleic acid amplification test (FDA approved Gen-Probe HPV Assay) to detect high risk human papilloma virus (Types: 16, 18, 31, 33, 35, 39, 45, 51, 52, 56, 58, 59, 66, and 68). The reference range is Not Detected. Comment: These test results should not be used as the sole basis for clinical assessment and treatment of patients. These results should always be correlated with other available data (cytology, histology, and clinical information). Anahi Perera MD LAB - MICROBIOLOGY ORDERABLES Fi nal Result Performing Organization Address City/State/[facility] Co de Phone Number [facility] [address] [phone] from Last 3 Months or Most Recently Relevant to Health Maintenance Insurance [employer] [facility] Care Teams Predatory Hunter Relationship Specialty Start Date End Date Magnolia Colón MD [address] [place] [address] PCP - General Family Medicine 09/02/17
[2024-11-15 16:29] LABS: Hepatitis B Surface Antigen Negative (Negative)
[2024-11-15 17:00] LABS: Microcytosis 2+ (NORMAL)
[2024-11-15 17:01] LABS: Schistocytes None Seen
[2024-11-15 17:03] LABS: Hemoglobin A1C 5.2 % (<5.7); Hypochromasia 2+; Polychromasia 1+
[2024-11-15 17:04] LABS: Ovalocytes Occasional
[2024-11-15 17:20] LABS: Alanine Aminotransferase 20 U/L (6-35); Albumin Level 5.0 g/dL (3.5-5.1); Alkaline Phosphatase 111 U/L (38-126); Anion Gap 12 mmol/L (4-12); Aspartate Amino Transferase 30 U/L (14-36); Bilirubin,Total 0.4 mg/dL (0.2-1.3); Blood Urea Nitrogen 14 mg/dL (7-17); Calcium 9.5 mg/dL (8.4-10.2); Carbon Dioxide 25 mmol/L (22-30); Chloride 102 mmol/L (98-107); Cholesterol 184 mg/dL (0-200); Estimated Glomerular Filt Rate > 60; Glucose 105 mg/dL (65-110); HDL Direct 47 mg/dL; Potassium 3.9 mmol/L (3.4-5.0); Sodium 139 mmol/L (137-145); Total Protein 9.5 g/dL (6.3-8.2); Triglycerides 98 mg/dL (<150)
[2024-11-15 17:22] LABS: Iron 33 ug/dL (37-170)
[2024-11-15 17:34] LABS: Percent Iron Saturation 7 % (20-50)
[2024-11-15 17:55] LABS: Thyroid Stimulating Hormone Reflex 1.770 uIU/mL (0.465-4.68)
[2024-11-15 18:39] LABS: Vitamin B12 544.0 pg/mL (239-931)
== END 2024-11-15 14:15 | disposition home or self-care (01) ==
PROVIDERS: PCP Nurse Practitioner Adult Health
DX: Z20.9 Contact with and (suspected) exposure to unspecified communicable disease (principal); D50.9 Iron deficiency anemia, unspecified; Z13.1 Encounter for screening for diabetes mellitus; Z13.220 Encounter for screening for lipoid disorders; R53.83 Other fatigue
CPT/HCPCS: 36415; 80053; 80061; 82607; 82746; 83036; 83540; 83550; 84443; 85025; 86703; 86803; 87340; G0432